=== PATIENT | male | born 1935 ===

== ENCOUNTER 2022-04-28 22:10 | Emergency (ER) | payer SELFPAY ==
[2022-04-28 22:59] LABS: Basophils # (Auto) 0.2 K/mm3 (0.0-0.1); Basophils % (Auto) 2.4 % (0.0-1.8); Eosinophils # (Auto) 0.3 K/mm3 (0.0-0.4); Eosinophils % (Auto) 4.2 % (0.0-4.3); Hematocrit 43.6 % (35.5-45.6); Hemoglobin 14.2 gm/dl (11.8-15.2); Lymphocytes # (Auto) 0.8 K/mm3 (1.2-5.4); Lymphocytes % (Auto) 11.4 % (13.4-35.0); Mean Corpuscular HGB Conc 33 % (32-34); Mean Corpuscular Volume 94 fl (84-94); Monocytes # (Auto) 0.5 K/mm3 (0.0-0.8); Monocytes % (Auto) 6.9 % (0.0-7.3); Platelet Count 151 K/mm3 (140-440); Red Blood Count 4.64 M/mm3 (3.65-5.03); Red Cell Distribution Width 14.9 % (13.2-15.2)
--- NOTE | 2022-04-28 23:02 | XRay Report ---
CHEST 2 VIEWS INDICATION / CLINICAL INFORMATION: CHEST PAIN. COMPARISON: None available. FINDINGS: SUPPORT DEVICES: None. HEART / MEDIASTINUM: Heart size and mediastinal contour appear within normal limits. LUNGS / PLEURA: Bilateral coarsened interstitial markings are demonstrated with no evidence of focal consolidation. No pneumothorax. BONES: Degenerative kyphosis of the thoracic spine is present. ADDITIONAL FINDINGS: No significant additional findings. IMPRESSION: 1. Nonspecific interstitial prominence which may be chronic, no focal airspace consolidation. Signer Name: Deven Siddiqui II, MD Signed: 04/28/2022 10:58 PM Workstation Name: [id number]
[2022-04-28 23:19] LABS: Alanine Aminotransferase 17 units/L (7-56); BUN/Creatinine Ratio 15; Blood Urea Nitrogen 16 mg/dL (9-20); Calcium 9.3 mg/dL (8.4-10.2); Hemolysis Index 28
[2022-04-29 03:32] VITALS: BP 147/85
--- NOTE | 2022-04-29 10:40 | Electrocardiograph Report ---
[facility] Test Date: 2022-04-28 Test Time: 22:14:57 Pat Name: JACQUI BENJAMIN Department: Room: Gender: M Recoverer: ZHAO : 1935 Requested By: ED DOC Order Number: [id number] Reading MD: Flako Baez Measurements Intervals [place] Rate: 81 P: 45 GA: 130 QRS: -31 QRSD: 86 T: -43 QT: 369 QTc: 421 Interpretive Statements Sinus rhythm Atrial premature complexes Inferoposterior infarct, age indeterminate No previous ECG available for comparison Electronically Signed On 04-29-2022 10:39:58 EDT by Flako Baez
== END 2022-04-29 17:22 | disposition left against medical advice (07) ==
LOC: ED 22:10
DX: R07.89 Other chest pain (principal); Z53.21 Procedure and treatment not carried out due to patient leaving prior to being seen by health care provider
CPT/HCPCS: 36415; 71046; 80053; 84484; 85025; 93005